=== PATIENT | male | born 1970 | race Caucasian/White ===

== ENCOUNTER 2020-08-12 10:38 | Emergency (ER) | payer OTHER, SELFPAY ==
[2020-08-12 10:49] VITALS: BP 165/98; PULSE 80; RESP 18; O2SAT 97; BMI 35.9
--- NOTE | 2020-08-12 10:59 | HMH.EDUTC ---
[facility] Disposition Clinical Impression: FB eye Qualifiers: Encounter type: initial encounter Laterality: right Qualified Code(s): T15.91XA - Foreign body on external eye, part unspecified, right eye, initial encounter Disposition: Still a Patient Condition on Discharge: Good Instructions: DI for Eye Pain Referrals: Bonnie Szymanski [Primary Care Provider] - Time of Disposition: 11:02 Medical Decision Making - Joaquim Inquiry Pt receiving controlled substance: No Vital Signs: 08/12/20 10:49 Pulse Rate [Radial] 80 Respiratory Rate 18 Blood Pressure [Right Arm] 165/98 H Blood Pressure Mean [Right Arm] 120 Blood Pressure Source [Right Arm] Automatic Cuff Blood Pressure Position [Right Arm] Sitting 02 Sat by Pulse Oximetry 97 Oxygen Delivery Method Room Air Medical Decision Narrative: sent to ed for object in eye [facility] HPI - General Chief complaint: Eye Problems Stated complaint: R eye pain Time Seen by Provider: 08/12/20 10:59 Mode of Arrival: Ambulatory Source of Information: Patient Limitations: No Limitations Description of Symptoms (Recalled from Triage Doc. by RN): Got something in his right eye on Thursday. HEENT Symptoms (Recalled from RN notes): Yes Resp Symptoms (Recalled from RN notes): No Skin Symptoms (Recalled from RN notes): No MS Symptoms (Recalled from RN notes): No Functional Status (Recalled from RN notes): wnl - History of Present Illness Provider Complaint: 49 yr old male presents for something in rt eye. Pt states he was dropping tobacco sticks on thursday and felt something in eye. Pt states he has flushed numerous time but still feels something in eye. - Related Data Allergies Allergy/AdvReac Type Severity Reaction Status Date / Time No Known Allergies Allergy Verified 08/12/20 10:52 - Worker's Comp Is this a Worker's Comp case?: No [facility] History - Hepatitis A Screen Drug use history?: No High risk sexual behaviors?: No History of sexually transmitted infection?: No Currently employed?: No Childcare worker?: No Do you have indoor plumbing?: Yes Do you have electricity?: Yes Attestation statement:: This patient has been screened for Hepatitis A risk factors. I have reviewed the patient's past medical history: Yes - Social History Smoking Status: Current every day smoker Tobacco Type: cigarettes # Packs/Day (cigarettes): 1 Alcohol Intake: never Occupational Status: employed Housing: house ROS Obtained: Yes All systems reviewed & no additional complaints - Constitutional Constitutional: Reports system reviewed and no additional complaints, except as docu, Denies fever(s) - Eyes Eyes: Reports system reviewed and no additional complaints, except as docu, Reports as per HPI, Reports blurry vision, Reports eye pain - ENT Ears, Nose, Mouth, and Throat: Reports system reviewed and no additional complaints, except as docu, Denies epistaxis - Cardiovascular Cardiovascular: Reports system reviewed and no additional complaints, except as docu, Denies leg edema - Respiratory Respiratory: Yes system reviewed and no additional complaints, except as docu, No dyspnea on exertion - Gastrointestinal Gastrointestingal: Reports: system reviewed and no additional complaints, except as docu. Denies: vomiting - Musculoskeletal Musculoskeletal: Reports system reviewed and no additional complaints, except as docu, Denies stiffness - Integumentary/Breasts Skin/Breast: Reports system reviewed and no additional complaints, except as docu, Denies rash - Neurologic Neurologic: Reports system reviewed and no additional complaints, except as docu - Endocrine Endocrine: Reports system reviewed and no additional complaints, except as docu, Denies fatigue - Hematologic/Lymphatic Henatologic/Lymphatic: Reports system reviewed and no additional complaints, except as docu, Denies lymphadenopathy - Allergic/Immunologic Allergic/Immunologic: Reports system reviewed and no additiona
[2020-08-12 11:13] VITALS: BP 155/113; PULSE 81; RESP 18; O2SAT 99; BMI 35.8
--- NOTE | 2020-08-12 11:24 | HMH.EDGENADL ---
ED Disposition Clinical Impression: Pain, eye, right, Sensation of foreign body in eye Disposition: Home, Self-Care Condition on Discharge: Good Instructions: DI for Eye Pain Additional Instructions: Erythromycin ointment in right eye [address] Pichardo, your eye doctor, tomorrow. Call tomorrow morning to make appointment. Additional instructions for EYE PAIN or INJURY: Follow up with an collection support specialist as soon as possible. Return to the emergency department if severe pain, loss of vision, pus drainage, severe swelling or redness of eyelids. Referrals: Bonnie Szymanski [Primary Care Provider] - - Critical Care Critical Care Time: No Attestation: On 08/12/20, the high probability of a clinically significant, sudden or life threatening deterioration of the following system(s) required my full and direct attention, intervention and personal management. The time I documented below is in addition to time spent performing reported procedures but includes the following listed in this critical care notation. Medical Decision Making - Joaquim Inquiry Pt receiving controlled substance: No Vital Signs: 08/12/20 10:49 08/12/20 11:13 Pulse Rate [Radial] 80 81 Respiratory Rate 18 18 Blood Pressure [Right Arm] 165/98 H 155/113 H Blood Pressure Mean [Right Arm] 120 127 Blood Pressure Source [Right Arm] Automatic Cuff Automatic Cuff Blood Pressure Position [Right Arm] Sitting 02 Sat by Pulse Oximetry 97 99 Oxygen Delivery Method Room Air Room Air General Adult HPI - General Chief complaint: Eye Problems Stated complaint: R eye pain Time Seen by Provider: 08/12/20 10:59 Mode of Arrival: Ambulatory Limitations: No Limitations Description of Symptoms (Recalled from ER Triage Doc. by RN): c/o right eye redness and pain after getting something in it Thursday. He has tried to wash it out numerous times with no improvement - History of Present Illness HPI narrative: Patient says that Thursday night, 2 days ago he noticed a foreign body sensation in his right eye while dropping tobacco sticks. States that last night it felt like there was something moving in the upper outer portion of his eye or under his eyelid. This morning, he does not feel the foreign body sensation, but has some swelling of his eyelids and his eye is injected. He does not wear contact lenses, sometimes wears glasses.. His eye doctor is Dr. Pichardo in [place]. - Related Data Home Medications Medication Instructions Recorded Confirmed Montelukast Sodium 10 mg PO PM 08/12/20 08/12/20 Omeprazole [Omeprazole 40mg 40 mg PO DAILY 08/12/20 08/12/20 Capsule] Allergies Allergy/AdvReac Type Severity Reaction Status Date / Time No Known Allergies Allergy Verified 08/12/20 10:52 [facility] History - Hepatitis A Screen Drug use history?: No High risk sexual behaviors?: No History of sexually transmitted infection?: No Currently employed?: No Childcare worker?: No Do you have indoor plumbing?: Yes Do you have electricity?: Yes Attestation statement:: This patient has been screened for Hepatitis A risk factors. I have reviewed the patient's past medical history: Yes - Social History Smoking Status: Current every day smoker Tobacco Type: cigarettes # Packs/Day (cigarettes): 1 Alcohol Intake: never Occupational Status: employed Housing: house ROS Obtained: Yes Systems reviewed as appropriate & no additional complaints - Eyes Eyes: Reports blurry vision, Denies loss of vision, Reports eye pain Physical Exam - General General appearance: alert, in no apparent distress - Eye Eye exam: Present: PERRL, EOMI - Expanded Eye Exam Eyelids: right: swelling eyelids (Mild swelling right upper eyelid without tenderness or lesions) Pupils: Bilateral: regular, round Sclera/Conjunctival: right: injection Anterior chamber: bilateral: normal inspection Comment: Fluorescein staining performed with magnification. No uptake o
--- NOTE | 2020-08-12 11:31 | PC.NURSE ---
visual acuity right eye 20/40 left eye 20/25
[2020-08-12 11:42] VITALS: BP 145/85; PULSE 80; RESP 18; TEMP 36.8; O2SAT 100
== END 2020-08-12 11:48 | disposition home or self-care (01) ==
LOC: UTC 11:02 → ER 11:06
PROVIDERS: Emergency Provider Emergency Medicine; PCP Physician Assistant
DX: T15.91XA Foreign body on external eye, part unspecified, right eye, initial encounter (principal); W45.8XXA Other foreign body or object entering through skin, initial encounter; Y92.79 Other farm location as the place of occurrence of the external cause; F17.210 Nicotine dependence, cigarettes, uncomplicated
CPT/HCPCS: 99282